=== PATIENT | female | born 1965 | race Caucasian/White ===

== ENCOUNTER → 2017-04-08 | Day surgery (SDC) | payer BC, OTHER ==
[~2017-04-08] VITALS: Ht 162.6 cm; Wt 93.4 kg
[~2017-04-08] MED LIST: ALAVERT10 M1 PO; CENTRUM SILVER1 EAC4 PO; CRESTOR10 MG PO; LISINOPRIL10 MG PO; MAXZIDE-25 MG1 EACH PO; OMEPRAZOLE20 M1 PO; PROAIR RESPICL90 MCG IH; PROZAC20 MG PO; VENLAFAXINE H37.5 MG PO; VITAMIN D2000 UNI1 PO; VITAMIN D2000 UNIT PO
--- NOTE | ~2017-04-08 | O ---
[facility] [place] [address] OPERATIVE REPORT Name: KEEGAN CAROLINA Room #: 150-8 [facility] M.R.#: [id number] Admission: 04/08/17 Attend Phys: Rene Jordan MD Discharge: Date of : 61 Report #: [id number] THIS REPORT FOR: //name// CC: [facility] physician/PCP Rene Jordan DATE OF SERVICE: 04/08/2017 PREOPERATIVE DIAGNOSIS: Right ankle lateral malleolus fracture. POSTOPERATIVE DIAGNOSIS: Right ankle lateral malleolus fracture. PROCEDURE: Right ankle open reduction and internal fixation. SURGEON: Rene Jordan MD ANESTHESIA: General. INDICATIONS: See hospital H and P. DATE OF OPERATION: 04/08/2017 DESCRIPTION OF PROCEDURE: After adequate general anesthesia had been obtained, the patient's right lower extremity was prepped and draped in the usual meticulous sterile fashion. Limb was exsanguinated with gravity and tourniquet inflated to 350 torr. Thigh tourniquet was used. The lateral incision was made, subQ divided using gentle spreading technique. Fracture was identified. It was irrigated, reduced and held in place with tenaculum. ____ screw was placed posterior to anterior. We then placed a locking Synthes plate laterally. The first screw was placed in the sliding hole. When the plate was adequately positioned we checked in 2 planes and it was noted to be in good position. We then placed 3 proximal screws and 4 locking screws in the distal fragment. The entire construct was checked in 2 planes and found to be in good position. The wound was then irrigated copiously. The deeper periosteal layer was closed over the top of the plate. SubQ closed with 2-0 Monocryl and skin closed with troy. Sterile compressive dressing was complied. Tourniquet deflated. By: 1622 [id number] Rene Jordan MD /nt
[2017-04-08 13:31] VITALS: BP 92/59
[2017-04-08 16:33] VITALS: BP 92/59
== END | disposition home or self-care (01) ==
LOC: OR 04-07 16:16 → TBA 06:06 → OR 06:06 → TBA 06:07
DX: S82.61XA Displaced fracture of lateral malleolus of right fibula, initial encounter for closed fracture (principal); Z79.899 Other long term (current) drug therapy; Z98.890 Other specified postprocedural states; X58.XXXA Exposure to other specified factors, initial encounter; Y93.89 Activity, other specified; Y92.89 Other specified places as the place of occurrence of the external cause; Y99.8 Other external cause status
CPT/HCPCS: 50010; 50101; 50386; 51412; 55430; 56525; 57091; 62110; 62900; 64032; 70005